=== PATIENT | male | born 1945 | race Caucasian/White ===

== ENCOUNTER → 2020-08-02 | Outpatient (CLI) | payer OTHER ==
[~2020-08-02] MED LIST: ASPIRIN81 MG PO; BREO ELLIPTA 11 EACH INH; CRESTOR 10 MG T10 MG PO; FEOSOL325 MG PO; FOLIC ACID1 MG PO; GLIPIZIDE ER5 MG PO; LANTUS100 UNIT/1 SQ; METFORMIN ER1000 MG PO; MOBIC15 MG PO; PROTONIX 40 MG40 M1 PO; PROVENTIL HFA6.7 GM INH; VITAMIN D250 MCG PO; ZESTRIL5 MG PO
== END ==
LOC: HEART 5 12:52
DX: J44.9 Chronic obstructive pulmonary disease, unspecified (principal); J30.9 Allergic rhinitis, unspecified; M19.90 Unspecified osteoarthritis, unspecified site; R94.2 Abnormal results of pulmonary function studies; F17.210 Nicotine dependence, cigarettes, uncomplicated
CPT/HCPCS: 94060; 94729

== ENCOUNTER → 2020-08-04 | Day surgery (SDC) | payer OTHER ==
[2020-08-04 12:33] LABS: HEMOGLOBIN 8.3 gm/dl (14.0-17.5); RED BLOOD COUNT 3.14 M/UL (4.20-5.50); WHITE BLOOD COUNT 13.2 K/UL (4.5-11.0)
[2020-08-04 12:44] LABS: BUN/CREATININE RATIO 31 (0-10)
== END | disposition home or self-care (01) ==
LOC: OR 07:30
PROVIDERS: Anesthesiology; Internal Medicine Pulmonary Disease
PROC: 0B9C8ZX Drainage of Right Upper Lung Lobe, Via Natural or Artificial Opening Endoscopic, Diagnostic (ICD-10-PCS; 2020-08-04)
PROC: 0B9C8ZX Drainage of Right Upper Lung Lobe, Via Natural or Artificial Opening Endoscopic, Diagnostic (ICD-10-PCS; principal; 2020-08-04 12:00)
DX: C34.11 Malignant neoplasm of upper lobe, right bronchus or lung (principal); J44.9 Chronic obstructive pulmonary disease, unspecified; I10 Essential (primary) hypertension; F17.210 Nicotine dependence, cigarettes, uncomplicated; J30.9 Allergic rhinitis, unspecified; E78.5 Hyperlipidemia, unspecified; M19.90 Unspecified osteoarthritis, unspecified site; E78.00 Pure hypercholesterolemia, unspecified; M81.0 Age-related osteoporosis without current pathological fracture; E10.9 Type 1 diabetes mellitus without complications; Z20.822 Contact with and (suspected) exposure to COVID-19; Z79.1 Long term (current) use of non-steroidal anti-inflammatories (NSAID); Z79.4 Long term (current) use of insulin; Z79.899 Other long term (current) drug therapy
CPT/HCPCS: 71045; 76000; 80053; 82962; 85027; 87015; 87070; 87077; 87116; 87186; 87205; 87206; 93005; J2704; J3010; J7120

== ENCOUNTER → 2020-08-16 | Outpatient (CLI) | payer OTHER | LOC: MRI 13:52 | DX: Z12.89 Encounter for screening for malignant neoplasm of other sites (principal); C34.11 Malignant neoplasm of upper lobe, right bronchus or lung; G31.9 Degenerative disease of nervous system, unspecified; R90.89 Other abnormal findings on diagnostic imaging of central nervous system | CPT/HCPCS: 70553; A9577 ==

== ENCOUNTER → 2020-12-13 | Outpatient (CLI) | payer OTHER | LOC: CT 11:30 | DX: C34.11 Malignant neoplasm of upper lobe, right bronchus or lung (principal); Z12.89 Encounter for screening for malignant neoplasm of other sites; N28.1 Cyst of kidney, acquired; I70.0 Atherosclerosis of aorta | CPT/HCPCS: 71260; Q9967 ==